=== PATIENT | female | born 1965 | race Caucasian/White ===

== ENCOUNTER → 2021-11-16 | Outpatient (CLI) | payer BC ==
[~2021-11-16] MED LIST: ASPIR 8181 MG PO; Z.0.SYNTHROID50 MCG PO; [UNRECOGNIZED DRUG - OTHER] PO
== END ==
LOC: RAD 14:12
PROVIDERS: ATTEND Internal Medicine
DX: M19.012 Primary osteoarthritis, left shoulder (principal); M19.032 Primary osteoarthritis, left wrist

== ENCOUNTER → 2022-10-20 | Outpatient (CLI) | payer BC | LOC: MAMMO 13:38 | PROVIDERS: ATTEND Internal Medicine | DX: Z12.31 Encounter for screening mammogram for malignant neoplasm of breast (principal) | CPT/HCPCS: 77067 ==

== ENCOUNTER 2022-11-10 12:38 | Observation (INO) | payer BC ==
[~2022-11-10] VITALS: Ht 167.6 cm; Wt 90.7 kg
[2022-11-10] MEDS ORDERED: SODIUM CHLORIDE 0.9% 1000ML 1,000 ML IV STA (12:40)
[2022-11-10 13:14] LABS: BASOPHILS % 0.6 % (0.0-1.0); EOSINOPHILS # (AUTO) 0.1 (0.0-0.4); EOSINOPHILS % 1.3 % (0.0-6.0); HEMATOCRIT 45.2 % (34.2-44.1); HEMOGLOBIN 14.8 g/dL (12.0-16.0); LYMPHOCYTES # (AUTO) 1.3 (1.0-3.2); LYMPHOCYTES % 25.2 % (18.0-39.1); MEAN CORPUSCULAR HEMOGLOBIN 31.4 pg (28-32); MEAN CORPUSCULAR HGB CONC 32.7 g/dL (31-35); MEAN CORPUSCULAR VOLUME 95.8 fL (81-99); MONOCYTES # (AUTO) 0.3 (0.2-0.8); MONOCYTES % 5.5 % (4.4-11.3); NEUTROPHILS # (AUTO) 3.6 (2.1-6.9); NEUTROPHILS % 67.2 % (38.7-80.0); PLATELET COUNT 241 x10e3/uL (140-360); RED BLOOD COUNT 4.72 x10e6/uL (3.6-5.1); RED CELL DISTRIBUTION WIDTH 13.2 % (11.7-14.4)
[2022-11-10 13:38] LABS: ALBUMIN 4.2 g/dL (3.5-5.0); ALBUMIN/GLOBULIN RATIO 0.9 (0.8-2.0); ANION GAP 15.4 mmol/L (8-16); CREATININE, SERUM 0.74 mg/dL (0.57-1.11); MAGNESIUM 2.1 MG/DL (1.3-2.1); POTASSIUM 4.4 mmol/L (3.5-5.1)
[2022-11-10 13:39] LABS: INR 0.98; PROTHROMBIN TIME 13.5 seconds (11.9-14.5)
[2022-11-10] MEDS ORDERED: CLOPIDOGREL BISULFATE 75 MG TAB PO ONE ×2 (14:30→19:30)
[2022-11-10] MEDS ORDERED: BENZONATATE 100 MG CAP PO PRN (15:00)
[2022-11-10] MEDS ORDERED: Morphine 2mg Syringe 2 MG/ML SYR IV PRN (15:00)
[2022-11-10] MEDS ORDERED: TRAMADOL HCL 50 MG TAB PO PRN (15:00)
[2022-11-10] MEDS ORDERED: DEXTROSE 50% SYRINGE 50 ML IV PRN (15:00)
[2022-11-10] MEDS ORDERED: HYDRALAZINE HCL 20 MG/ML VIAL IV PRN (15:00)
[2022-11-10] MEDS ORDERED: DOCUSATE SODIUM 100 MG CAP PO PRN (15:00)
[2022-11-10] MEDS ORDERED: MELATONIN 5 MG TABLET PO PRN (15:00)
[2022-11-10] MEDS ORDERED: SIMETHICONE 80 MG CHEW PO PRN (15:00)
[2022-11-10] MEDS ORDERED: ONDANSETRON HCL INJ 2MG/ML 2ML 2 MG/ML VIAL IV PRN ×2 (15:00)
[2022-11-10] MEDS ORDERED: POTASSIUM CHLORIDE 20 MEQ TAB CR PO PRN (15:00)
[2022-11-10] MEDS ORDERED: ACETAMINOPHEN 325 MG TAB PO PRN (15:00)
[2022-11-10] MEDS ORDERED: LIDOCAINE 4% PATCH TP PRN (15:00)
[2022-11-10] MEDS ORDERED: DIPHENHYDRAMINE HCL 25 MG CAP PO PRN (15:00)
[2022-11-10] MEDS ORDERED: ALBUTEROL/IPRATROPIUM 3 ML NEB NEB PRN (15:00)
[2022-11-10] MEDS: FAMOTIDINE 20 MG/2 ML VIAL IV SCH ×2 (16:10→20:33)
[2022-11-10] MEDS ORDERED: ENOXAPARIN SOD INJ 40 MG/0.4 ML SYR SC SCH (17:00)
[2022-11-10 17:35] VITALS: BP 116/57; PULSE 58; RESP 18; TEMP 98.2; O2SAT 100
[2022-11-10 17:45] VITALS: BP 116/57; PULSE 58; RESP 18; TEMP 98.2; O2SAT 100
[2022-11-10] MEDS ORDERED: LOSARTAN POTASS25 MG PO (19:41)
[2022-11-10] MEDS ORDERED: CYMBALTA30 MG (19:42)
[2022-11-10] MEDS ORDERED: ATORVASTATIN 40 MG TAB PO SCH (21:00)
[2022-11-10 21:01] VITALS: BP 133/51; PULSE 56; RESP 20; TEMP 97.5; O2SAT 100
[2022-11-10 21:10] VITALS: BP 133/51; PULSE 56; RESP 20; TEMP 97.5; O2SAT 100
[2022-11-11] VITALS (10 sets, daily range): BP systolic 98–129; BP diastolic 48–81; PULSE 59–81; RESP 18–20; TEMP 96.8–98.3; O2SAT 98–100
[2022-11-11] MEDS ORDERED: SODIUM CHLORIDE 0.9% 1000ML 1,000 ML IV SCH (05:00)
[2022-11-11] MEDS ORDERED: SYNJARDY 12.5-1 EACH PO (05:21)
[2022-11-11] MEDS ORDERED: ATORVASTATIN CA10 MG PO (05:21)
[2022-11-11 05:34] LABS: BASOPHILS % 0.6 % (0.0-1.0); EOSINOPHILS # (AUTO) 0.1 (0.0-0.4); EOSINOPHILS % 1.9 % (0.0-6.0); HEMATOCRIT 42.4 % (34.2-44.1); HEMOGLOBIN 14.1 g/dL (12.0-16.0); LYMPHOCYTES # (AUTO) 1.8 (1.0-3.2); LYMPHOCYTES % 38.3 % (18.0-39.1); MEAN CORPUSCULAR HEMOGLOBIN 31.9 pg (28-32); MEAN CORPUSCULAR HGB CONC 33.3 g/dL (31-35); MEAN CORPUSCULAR VOLUME 95.9 fL (81-99); MONOCYTES # (AUTO) 0.4 (0.2-0.8); MONOCYTES % 7.9 % (4.4-11.3); NEUTROPHILS # (AUTO) 2.4 (2.1-6.9); NEUTROPHILS % 51.1 % (38.7-80.0); PLATELET COUNT 205 x10e3/uL (140-360); RED BLOOD COUNT 4.42 x10e6/uL (3.6-5.1); RED CELL DISTRIBUTION WIDTH 13.2 % (11.7-14.4)
[2022-11-11 05:51] LABS: ALBUMIN 3.7 g/dL (3.5-5.0); ANION GAP 13.9 mmol/L (8-16); CALCIUM 9.2 mg/dL (8.4-10.2); CREATININE, SERUM 0.7 mg/dL (0.57-1.11); POTASSIUM 3.9 mmol/L (3.5-5.1)
[2022-11-11 06:15] LABS: CHOL/HDL RATIO 3.3 (3.0-3.6); MAGNESIUM 2.2 MG/DL (1.3-2.1); PHOSPHORUS 3.8 MG/DL (2.3-4.7)
[2022-11-11 06:36] LABS: THYROID STIMULATING HORMONE 3.238 uIU/mL (0.350-4.940)
[2022-11-11] MEDS ORDERED: PANTOPRAZOLE SOD 40 MG TABEC PO SCH (07:30)
[2022-11-11] MEDS ORDERED: ASPIRIN 81 MG ENTERIC COATED PO SCH ×2 (09:00)
[2022-11-11] MEDS ORDERED: HEPARIN SOD (PORCINE) 1000 UNIT/ML 30ML ONE (09:05)
[2022-11-11] MEDS ORDERED: LIDOCAINE HCL 2% LOCAL 20 ML VIAL ONE (09:05)
[2022-11-11] MEDS ORDERED: IOPAMIDOL 370 MG/ML 100 ML INFUS..BTL INJ ONE (09:06)
[2022-11-11] MEDS ORDERED: HEPARIN SOD/SOD CHLORIDE 2,000 ML ONE (09:06)
[2022-11-11] MEDS ORDERED: SODIUM CHLORIDE 0.9% 1000ML 1,000 ML ONE (09:06)
[2022-11-11] MEDS ORDERED: MIDAZOLAM HCL 2 MG/2 ML VIAL ONE (09:07)
[2022-11-11] MEDS ORDERED: VERAPAMIL HCL 2.5 MG/ML 2 ML VIAL ONE (09:07)
[2022-11-11] MEDS ORDERED: NITROGLYCERIN/D5W 200 MCG/ML 250 ML ONE (09:07)
[2022-11-11] MEDS ORDERED: FENTANYL CITRATE/PF 100MCG/2 ML INJ ONE (09:08)
[2022-11-11] MEDS: FAMOTIDINE 20 MG/2 ML VIAL IV SCH (09:18)
[2022-11-11] MEDS ORDERED: HYDRALAZINE HCL 20 MG/ML VIAL ONE (10:09)
[2022-11-11] MEDS ORDERED: ATORVASTATIN 10 MG TAB PO SCH (21:00)
[2022-11-12] MEDS ORDERED: LEVOTHYROXINE SODIUM 50 MCG TAB PO SCH (06:00)
[2022-11-12] MEDS ORDERED: ASPIRIN 81 MG CHEW TAB PO SCH (09:00)
[2022-11-12] MEDS ORDERED: DULOXETINE HCL 30 MG DELAYED RELEASE PO SCH (09:00)
== END 2022-11-11 18:09 | disposition home or self-care (01) ==
LOC: ER 12:41 → ERHOLD 14:59 → MED/SURG 17:35
PROVIDERS: ADMIT Internal Medicine; ATTEND Internal Medicine
DX: R07.89 Other chest pain (principal); I25.10 Atherosclerotic heart disease of native coronary artery without angina pectoris; I10 Essential (primary) hypertension; E11.69 Type 2 diabetes mellitus with other specified complication; E78.00 Pure hypercholesterolemia, unspecified; E03.9 Hypothyroidism, unspecified; R42 Dizziness and giddiness; F32.A Depression, unspecified; Z20.822 Contact with and (suspected) exposure to COVID-19; Z79.82 Long term (current) use of aspirin; Z79.84 Long term (current) use of oral hypoglycemic drugs; Z79.899 Other long term (current) drug therapy; Z82.49 Family history of ischemic heart disease and other diseases of the circulatory system; Z83.3 Family history of diabetes mellitus
CPT/HCPCS: 36415 ×2; 71045; 80053 ×2; 80061; 82550 ×2; 82553 ×2; 82948 ×2; 83036; 83735 ×2; 83880; 84100; 84443; 84484 ×2; 85025 ×2; 85610; 85730; 93005; 93458; 99284; C1766; C1769; C1887; G0378 ×2; J0360; J1644; J1650; J2001; J2250; J3010; J7030 ×2; Q9967; U0002; 93454; 99152; 99153

== ENCOUNTER 2024-06-18 06:10 | Emergency (ER) | payer BC ==
[~2024-06-18] VITALS: Ht 167.6 cm; Wt 80.7 kg
[~2024-06-18 06:10] MED LIST changes: +ATORVASTATIN CA10 MG PO; +CYMBALTA30 MG; +LOSARTAN POTASS25 MG PO; +SYNJARDY 12.5-1 EACH PO
[2024-06-18 06:17] VITALS: PULSE 80; RESP 18; TEMP 98.6; O2SAT 100
[2024-06-18] MEDS ORDERED: AZITHROMYCIN250 MG PO (06:30)
== END 2024-06-18 06:35 | disposition home or self-care (01) ==
LOC: ER 06:20
DX: R05.9 Cough, unspecified (principal); J02.0 Streptococcal pharyngitis; I10 Essential (primary) hypertension; E11.9 Type 2 diabetes mellitus without complications; E78.5 Hyperlipidemia, unspecified; E03.9 Hypothyroidism, unspecified; I25.10 Atherosclerotic heart disease of native coronary artery without angina pectoris; F32.A Depression, unspecified
CPT/HCPCS: 99283

== ENCOUNTER → 2024-10-09 | Outpatient (REF) | payer BC ==
[~2024-10-09] MED LIST changes: +AZITHROMYCIN250 MG PO
== END ==
LOC: RAD 16:15
PROVIDERS: ATTEND Internal Medicine
DX: M47.27 Other spondylosis with radiculopathy, lumbosacral region (principal)
CPT/HCPCS: 72110

== ENCOUNTER → 2024-10-17 | Outpatient (REF) | payer BC | LOC: MAMMO 15:54 | PROVIDERS: ATTEND Internal Medicine | DX: Z12.31 Encounter for screening mammogram for malignant neoplasm of breast (principal); M85.88 Other specified disorders of bone density and structure, other site | CPT/HCPCS: 77067; 77080 ==

== ENCOUNTER → 2024-11-21 | Outpatient (REF) | payer BC | LOC: RAD 11:44 | PROVIDERS: ATTEND Internal Medicine | DX: J45.41 Moderate persistent asthma with (acute) exacerbation (principal) | CPT/HCPCS: 71046 ==